=== PATIENT | male | born 1990 | race Caucasian/White ===

== ENCOUNTER 2016-10-25 21:36 | Emergency (ER) | payer SELFPAY ==
[2016-10-25 21:51] VITALS: BP 124/73
--- NOTE | 2016-10-25 21:58 | EDM.PDOC ---
ED HPI GENERAL MEDICAL PROBLEM - General Stated Complaint: DRANK NYQUIL AND ALCOHOL TOGETHER Time Seen by Provider: 10/25/16 21:42 Source of Information: Reports: Patient, EMS - History of Present Illness INITIAL COMMENTS - FREE TEXT/NARRATIVE: He has been drinking alcohol. He drank some nyquil. He was not trying to kill himself he states. He refuses medical care and wants to go home against medical advice. - Related Data Allergies Allergy/AdvReac Type Severity Reaction Status Date / Time No Known Allergies Allergy Verified 10/25/16 21:46 Home Meds: Home Meds . [No Known Home Meds] 10/25/16 [History] ED ROS GENERAL - Review of Systems Review Of Systems: See Below (he refuses further evaluation and wants to leave [facility]) ED EXAM, GENERAL - Physical Exam Exam: See Below Free Text/Narrative:: He is in NAD. He frequently curses and refuses medical care and wants to leave [facility]. Course - Vital Signs Last Recorded V/S: Last Vital Signs Temp 98.1 F 10/25/16 21:46 Pulse 83 10/25/16 21:46 Resp 14 10/25/16 21:46 BP 124/73 10/25/16 21:46 Pulse Ox 96 10/25/16 21:46 Departure - Departure Time of Disposition: 21:57 Disposition: Against Medical Advice 07 Condition: Undetermined Clinical Impression: Alcohol intoxication - Discharge Information
== END 2016-10-25 21:48 | disposition left against medical advice (07) ==
LOC: MW.ED 21:36
DX: Z53.21 Procedure and treatment not carried out due to patient leaving prior to being seen by health care provider (principal)

== ENCOUNTER 2016-11-11 15:56 | Emergency (ER) | payer SELFPAY ==
[2016-11-11] MEDS ORDERED: Benzocaine 20% Topical Spray UD MUCMEM ONE (16:48)
[2016-11-11] MEDS ORDERED: Lidocaine 2% Viscous Solution 15 ML Cup PO ONE (16:48)
--- NOTE | 2016-11-11 16:54 | EDM.PDOC ---
ED HPI GENERAL MEDICAL PROBLEM - General Chief Complaint: General Stated Complaint: ABSCESS TOOTH Time Seen by Provider: 11/11/16 16:49 Source of Information: Reports: Patient History Limitations: Reports: No Limitations - History of Present Illness INITIAL COMMENTS - FREE TEXT/NARRATIVE: HISTORY AND PHYSICAL: History of present illness: Patient is a 26-year-old male presents to the emergency room today with complaints of a dental abscess. Patient reports he recently just moved here and does not have a local dentist he can see. Reports he woke up this morning with upper pain and swelling near a broken tooth, tooth #9. States this pain radiates up into the sinus cavity, patient points to his maxillaries area bilaterally. Patient denies any recent fever, chills, ear pain or throat pain. Patient denies any chest pain, shortness of breath, headache or vision changes. Review of systems: As per history of present illness and below otherwise all systems reviewed and negative. Past medical history: As per history of present illness and as reviewed below otherwise noncontributory. Surgical history: As per history of present illness and as reviewed below otherwise noncontributory. Social history: No reported history of drug or alcohol abuse. Family history: As per history of present illness and as reviewed below otherwise noncontributory. Physical exam: Gen.: Nontoxic appearing 26-year-old male. Able to speak in full sentences without shortness of breath. Alert and oriented HEENT: Atraumatic, normocephalic, pupils reactive, negative for conjunctival pallor or scleral icterus, mucous membranes moist, throat clear, neck supple, nontender, trachea midline. Patient has a broken tooth, tooth #9, no nerve root exposure. The upper gum along #10 through 7 is erythematous and tender to palpation with mild swelling. Lungs: Clear to auscultation, breath sounds equal bilaterally, chest nontender. Heart: S1S2, regular, negative for clicks, rubs, or JVD. Abdomen: Soft, nondistended, nontender. Negative for masses or hepatosplenomegaly. Negative for costovertebral tenderness. Pelvis: Stable nontender. Genitourinary: Deferred. Rectal: Deferred. Extremities: Atraumatic, negative for cords or calf pain. Neurovascular unremarkable. Neuro: Awake, alert, oriented. Cranial nerves II through XII unremarkable. Cerebellum unremarkable. Motor and sensory unremarkable throughout. Exam nonfocal. Diagnostics: [] Therapeutics: Dental balls Impression: Dental abscess Plan: 1. These follow-up with the dentist as soon as possible as we discussed. Prescription and for an antibiotic and anti-inflammatory were given to you. Dental balls were provided to the ED. 2. Return to the ED as needed as discussed Definitive disposition and diagnosis as appropriate pending reevaluation and review of above. Onset: Today Onset Date: 11/11/16 Onset Time: 07:00 Duration: Hour(s): Oral/Mouth Pain Score (Numeric/FACES): 10 - Related Data Allergies Allergy/AdvReac Type Severity Reaction Status Date / Time No Known Allergies Allergy Verified 11/11/16 16:31 Home Meds: Home Meds . [No Known Home Meds] 10/25/16 [History] Past Medical History - Past Health History Medical/Surgical History: Denies Medical/Surgical History Social & Family History - Tobacco Use Smoking Status *Q: Current Every Day Smoker Years of Tobacco use: 4 Packs/Tins Daily: 1 - Caffeine Use Caffeine Use: Reports: Coffee - Recreational Drug Use Recreational Drug Use: No ED ROS GENERAL - Review of Systems Review Of Systems: ROS reveals no pertinent complaints other than HPI. ED EXAM, GENERAL - Physical Exam Exam: See Below (See dictation) Course - Vital Signs Last Recorded V/S: Last Vital Signs Temp 36.9 C 11/11/16 16:28 Pulse 71 11/11/16 16:28 Resp 18 11/11/16 16:28 BP 134/85 11/11/16 16:28 Pulse Ox 97 11/11/16 16:28 - Orders/Labs/Meds Orders: Active Orders 24 hr Category Date Time Status Benzocaine [Hurricaine One 20%] Med 11/11/16 16:48 Once 2 each MUCMEM ONETIME ONE Lidocaine 2% [Xylocaine 2% Viscous] Med 11/11/16 16:48 Once 15 ml PO ONETIME ONE Medication Orders Benzocaine (Hurricaine One 20%) 2 each MUCMEM ONETIME ONE Stop: 11/11/16 16:49 Lidocaine HCl (Xylocaine 2% Viscous) 15 ml PO ONETIME ONE Stop: 11/11/16 16:49 Meds: Medications Generic Name Dose Route Start Last Admin Trade Name Freq PRN Reason Stop Dose Admin Benzocaine 2 each 11/11/16 16:48 Hurricaine One 20% MUCMEM 11/11/16 16:49 ONETIME ONE Lidocaine HCl 15 ml 11/11/16 16:48 Xylocaine 2% Viscous PO 11/11/16 16:49 ONETIME ONE Departure - Departure Time of Disposition: 16:54 Disposition: Home, Self-Care 01 Condition: Good Clinical Impression: Dental abscess - Discharge Information Referrals: PCP,None [Primary Care Provider] - Additional Instructions: The following information is given to patients seen in the emergency department who are being discharged to home. This information is to outline your options for follow-up care. We provide all patients seen in our emergency department with a follow-up referral. The need for follow-up, as well as the timing and circumstances, are variable depending upon the specifics of your emergency department visit. If you don't have a primary care physician on staff, we will provide you with a referral. We always advise you to contact your personal physician following an emergency department visit to inform them of the circumstance of the visit and for follow-up with them and/or the need for any referrals to a consulting specialist. The emergency department will also refer you to a specialist when appropriate. This referral assures that you have the opportunity for followup care with a specialist. All of these measure are taken in an effort to provide you with optimal care, which includes your followup. Under all circumstances we always encourage you to contact your private physician who remains a resource for coordinating your care. When calling for followup care, please make the office aware that this follow-up is from your recent emergency room visit. If for any reason you are refused follow-up, please contact the [facility] emergency department at and ask to speak to the emergency department charge nurse. [facility]- [place] [id number] 1. These follow-up with the dentist as soon as possible as we discussed. Prescription and for an antibiotic and pain medication that was given to you. Dental balls were provided to the ED. 2. Return to the ED as needed as discussed - My Orders Last 24 Hours: My Active Orders 11/11/16 16:48 Benzocaine [Hurricaine One 20%] 2 each MUCMEM ONETIME ONE Lidocaine 2% [Xylocaine 2% Viscous] 15 ml PO ONETIME ONE - Assessment/Plan Last 24 Hours: My Active Orders 11/11/16 16:48 Benzocaine [Hurricaine One 20%] 2 each MUCMEM ONETIME ONE Lidocaine 2% [Xylocaine 2% Viscous] 15 ml PO ONETIME ONE
[2016-11-11 17:45] VITALS: BP 134/100
== END 2016-11-11 17:20 | disposition home or self-care (01) ==
LOC: MW.ED 15:56
DX: K04.7 Periapical abscess without sinus (principal); F17.210 Nicotine dependence, cigarettes, uncomplicated
CPT/HCPCS: 99282; A9270